=== PATIENT | male | born 1955 | race Caucasian/White ===

== ENCOUNTER → 2024-09-20 | Outpatient (CLI) | payer MEDICARE, OTHER, SELFPAY ==
--- NOTE | 2024-09-20 16:30 | XR_ITS ---
Examination: CT chest, without intravenous contrast. Sagittal and coronal 2-D reconstructions. Exam date and time: September 20, 2024 1720 hours INDICATIONS: Diagnosis solitary pulmonary nodule, chest pain and difficulty breathing one month CTDI:vol (mGy) 9.35 DLP: (mGycm) 355 Technique: Multiple 3.0 mm axial sections of the chest to been obtained. Bone and lung density settings are obtained. Sagittal and coronal 2-D reconstructions have been obtained. Low dose protocols were performed. One or more of the following dose reduction techniques were used; automated exposure control, adjustment of the mA and/or KV according to patient size, use of iterative reconstruction technique. Findings: No thoracic aortic aneurysm dilatation Pulmonary artery segments are not enlarged No paratracheal tracheobronchial or bronchopulmonary adenopathy Prominent COPD with multiple areas of air space destruction At least 17 pulmonary nodules throughout both lungs ranging in size from 2 to 10 mm No visualized liver or splenic lesion No gallstones No pancreatic mass Multiple 1 to 2 mm renal calculi noted IMPRESSION: COPD At least 17 pulmonary nodules both lungs ranging in size from treated 10 mm, which this study is baseline recommend 6 month follow-up CT chest without contrast Consider renal sonography follow-up to assess multiple renal calculi
== END | disposition home or self-care (01) ==
PROVIDERS: PCP Internal Medicine; Referring Provider Internal Medicine; Visit Provider Internal Medicine
DX: J44.9 Chronic obstructive pulmonary disease, unspecified (principal); R91.8 Other nonspecific abnormal finding of lung field; N20.0 Calculus of kidney
CPT/HCPCS: 71250